=== PATIENT | female | born 1990 | race Caucasian/White ===

== ENCOUNTER → 2019-09-21 01:35 | Observation (INO) ==
[2019-09-20 20:31] LABS: Amphetamine Screen,Urine Positive ng/mL (Cutoff=1000); Barbiturate Screen,Urine Negative ng/mL (Cutoff=200); Benzodiazepines Screen,Urine Negative ng/mL (Cutoff=200); Cannabinoid Screen,Urine Positive ng/mL (Cutoff = 50); Cocaine Screen,Urine Positive ng/mL (Cutoff= 300); Opiate Screen,Urine Positive ng/mL (Cutoff=300); Phencyclidine Screen,Urine Negative ng/mL (Cutoff=25)
[2019-09-20 20:35] LABS: Bilirubin,Urine Small (Negative); Clarity,Urine Cloudy (Clear); Color,Urine Dark-Yellow (Yellow); Glucose,Urine (UA) Normal (Normal)
[2019-09-20 20:36] LABS: Blood,Urine Negative (Negative); Ketones,Urine Negative (Negative); Leukocyte Esterase,Urine Large (Negative); Nitrite,Urine Negative (Negative); Protein,Urine 30 mg/dL (Neg-Trace); Specific Gravity,Urine 1.029 (1.010-1.025); Urobilinogen,Urine Normal (Normal); WBC,Urine TNTC per hpf (0-3)
[2019-09-20 20:37] LABS: Bacteria,Urine Many per hpf (None-Few); Squamous Epithelial Cell,Urine Many per lpf (None-Few)
[2019-09-20 20:49] LABS: Calcium Oxalate Crystals,Urine Present; Mucus,Urine Few per lpf (Few)
[2019-09-20 22:41] LABS: Varicella Zoster IgG Antibody Positive
[2019-09-20 22:42] LABS: Rubella IgG Antibody POSITIVE (POSITIVE)
[2019-09-20 22:47] LABS: Hepatitis B Surface Antigen Nonreactive (Nonreactive)
[2019-09-20 23:16] LABS: HIV-1&2 Antibody & p24 Ag Nonreactive (Nonreactive)
[2019-09-21 00:02] LABS: Chlamydia Trachomatis DNA Ur NOT DETECTED (Not Detect)
[~2019-09-21 01:35] MED LIST: CefTRIAXone 1,000 MG VIAL IM ONE; Diphenoxylate/Atropine 1 TAB TABLET PO ONE; Famotidine 20 MG TABLET PO SCH; Lidocaine 1% 20 ML MDV IM ONE; Tdap (Boostrix) Vaccine 0.5 ML SYRINGE IM ONE; cloNIDine HCL 0.1 MG TABLET PO SCH; hydrOXYzine pamoate 25 MG CAPSULE PO PRN
[2019-09-21 06:31] LABS: Hepatitis C Virus Antibody Reactive (Nonreactive)
[2019-09-24 13:50] LABS: HCV Quant Log 5.23 log IU/mL
[2019-09-24 13:58] LABS: HCV Quant Interpretation DETECTED (Not Detected)
== END | disposition home or self-care (01) ==
LOC: 1NENULAB
PROVIDERS: ADMIT Student in an Organized Health Care Education/Training Program; ATTEND Student in an Organized Health Care Education/Training Program

== ENCOUNTER 2019-10-10 11:02 | Inpatient (IN) ==
[~2019-10-10 11:02] MED LIST changes: -CefTRIAXone 1,000 MG VIAL IM ONE; -Diphenoxylate/Atropine 1 TAB TABLET PO ONE; -Famotidine 20 MG TABLET PO SCH; +Famotidine 20 MG/2 ML VIAL IVP PRN; -Lidocaine 1% 20 ML MDV IM ONE; +Metoclopramide 10 MG/2 ML VIAL IVP PRN; +Naloxone 0.4 MG/ML INJ IVP PRN; +Ondansetron 4 MG/2 ML VIAL IVP PRN; -Tdap (Boostrix) Vaccine 0.5 ML SYRINGE IM ONE; -cloNIDine HCL 0.1 MG TABLET PO SCH; -hydrOXYzine pamoate 25 MG CAPSULE PO PRN
[2019-10-10] MEDS ORDERED: Ringers Solution, Lactated 1,000 ML ONE (11:04)
[2019-10-10] MEDS ORDERED: Oxytocin 20 units/ LR 1000 mL 20 UNIT/1,000 ML BAG IVC ONE (11:04)
[2019-10-10] MEDS ORDERED: Ringers Solution, Lactated 1,000 ML IVC SCH (11:15)
[2019-10-10 11:26] LABS: Basophils % 0.1 %; Eosinophils % 0.1 %; Hematocrit 32.9 % (35.3-44.9); Hemoglobin 10.6 g/dL (11.5-15.4); Immature Granulocytes % 0.4 % (0-4); Mean Corpuscular HGB Conc 32.2 g/dL (31.6-35.5); Mean Corpuscular Hemoglobin 27.1 pg (28.0-33.3); Mean Corpuscular Volume 84.1 fL (83.0-100.0); Mean Platelet Volume 8.8 fL (9.4-12.4); Monocytes # 0.6 K/mcL (0.0-1.3); Monocytes % 3.5 %; Neutrophils # 13.9 K/mcL (1.6-8.9); Platelet Count 296 K/mcL (140-400); Red Blood Count 3.91 M/mcL (3.82-4.97); Red Cell Distribution Width 14.6 % (11.5-14.5); Segmented Neutrophils % 83.9 %; White Blood Count 16.5 K/mcL (4.3-11.1)
[2019-10-10 12:48] LABS: Amphetamine Screen,Urine Positive ng/mL (Cutoff=1000); Barbiturate Screen,Urine Negative ng/mL (Cutoff=200); Benzodiazepines Screen,Urine Negative ng/mL (Cutoff=200); Cannabinoid Screen,Urine Negative ng/mL (Cutoff = 50); Cocaine Screen,Urine Negative ng/mL (Cutoff= 300); Opiate Screen,Urine Negative ng/mL (Cutoff=300); Phencyclidine Screen,Urine Negative ng/mL (Cutoff=25)
[2019-10-10] MEDS ORDERED: Acetaminophen 325 MG TABLET PO PRN (14:18)
[2019-10-10] MEDS ORDERED: Oxytocin 20 units/ LR 1000 mL 20 UNIT/1,000 ML BAG IVC SCH (14:18)
[2019-10-10] MEDS ORDERED: Benzocaine/Menthol 56 GM AEROSOL SPRAY TP PRN (14:18)
[2019-10-10] MEDS: clonazePAM 0.5 MG TABLET PO SCH (21:54)
[2019-10-10] MEDS: Ibuprofen 600 MG TABLET PO PRN (21:58)
[2019-10-11 05:07] LABS: Basophils % 0.2 %; Eosinophils # 0.1 K/mcL (0.0-0.6); Eosinophils % 0.8 %; Hematocrit 28.9 % (35.3-44.9); Hemoglobin 9.2 g/dL (11.5-15.4); Immature Granulocytes % 0.6 % (0-4); Lymphocytes # 3.2 K/mcL (0.6-4.6); Lymphocytes % 37.5 %; Mean Corpuscular HGB Conc 31.8 g/dL (31.6-35.5); Mean Corpuscular Hemoglobin 27.2 pg (28.0-33.3); Mean Corpuscular Volume 85.5 fL (83.0-100.0); Mean Platelet Volume 9.1 fL (9.4-12.4); Monocytes # 0.6 K/mcL (0.0-1.3); Monocytes % 6.5 %; Neutrophils # 4.6 K/mcL (1.6-8.9); Platelet Count 230 K/mcL (140-400); Red Blood Count 3.38 M/mcL (3.82-4.97); Red Cell Distribution Width 14.5 % (11.5-14.5); Segmented Neutrophils % 54.4 %; White Blood Count 8.5 K/mcL (4.3-11.1)
[2019-10-11 07:55] VITALS: BP 124/79
[2019-10-11] MEDS: Prenatal Vit/FA 1 EACH TABLET PO SCH ×2 (09:12→09:13)
[2019-10-11] MEDS: clonazePAM 0.5 MG TABLET PO SCH (09:12)
[2019-10-11] MEDS: Ibuprofen 600 MG TABLET PO PRN (09:13)
== END 2019-10-11 12:10 | disposition home or self-care (01) | DRG 560 ==
LOC: 1NENULAB → 1NENUOBS 13:37
PROVIDERS: ADMIT Obstetrics & Gynecology; ATTEND Obstetrics & Gynecology